=== PATIENT | male | born 1990 | race Two or more races ===

== ENCOUNTER 2016-10-13 22:00 | Emergency (ER) | payer OTHER ==
[~2016-10-13 22:00] MED LIST: BACITRACIN28.4 G2 TOP; NO HOME MEDICATION XX; NORCO 5-325 TA1 EACH PO
[2016-10-13 23:32] LABS: URINE APPEARANCE CLEAR; URINE BILIRUBIN NEGATIVE (NEG); URINE BLOOD NEGATIVE (NEG); URINE COLOR YELLOW; URINE GLUCOSE (UA) NEGATIVE (NEG); URINE KETONE NEGATIVE (NEG); URINE LEUKOCYTE ESTERASE NEGATIVE (NEG); URINE NITRITE NEGATIVE (NEG); URINE PROTEIN NEGATIVE (NEG); URINE SPECIFIC GRAVITY 1.015 (1.003-1.030)
[2016-10-13 23:43] LABS: BASO % 0.3 % (0-2); EOS % 0.7 % (0-7); EOSINOPHIL ABSOLUTE COUNT 0.1 tho/cmm (0.0-0.7); HCT-HEMATOCRIT 44.2 % (36.0-53.5); HGB-HEMOGLOBIN 15.4 gm/dl (13.5-17.0); IMMATURE GRANULOCYTES ABSOLUTE 0.02 tho/cmm (0-0.03); IMMATURE GRANULOCYTES PERCENT 0.3 % (0-0.3); LYMPH % 38.3 % (20-45); LYMPH ABSOLUTE COUNT 2.6 tho/cmm (0.8-4.5); MCH (MEAN CORPUSCULAR HGB) 29.3 pg (28.0-32.0); MCHC MEAN CORPUSCULAR HGB CONC 34.8 % (32.0-36.0); MEAN PLATELET VOLUME 11.7 cmc (9.4-12.4); MONO % 7.7 % (0-12); MONOCYTE ABSOLUTE COUNT 0.5 tho/cmm (0.0-1.2); NEUTROPHIL ABSOLUTE COUNT 3.6 tho/cmm (1.6-8.0); NEUTROPHIL-AUTOMATED 3.6 tho/cmm (1.6-8.0); NEUTROPHILS % 52.7 % (40-80); PLATELET COUNT 222 tho/cmm (150-450); RED BLOOD COUNT 5.26 mil/cmm (4.40-5.70); WHITE BLOOD COUNT 6.9 tho/cmm (4.0-10.0)
[2016-10-13 23:59] LABS: ALB/GLOB RATIO 0.9 (0.8-2.0); ALBUMIN 3.6 g/dl (3.5-5.0); ALKALINE PHOSPHATASE 73 U/L (33-138); ALT/SGPT 100 U/L (12-78); BILIRUBIN,TOTAL 0.5 mg/dl (0.0-1.5); BLOOD UREA NITROGEN 12 mg/dl (6-24); CALCIUM 9.3 mg/dl (8.5-10.5); CARBON DIOXIDE-VENOUS 25 mmol/L (22-32); CHLORIDE 106 mmol/l (96-110); CREATININE 0.96 mg/dl (0.60-1.30); GLUCOSE 85 mg/dL (70-110); LIPASE 117 U/L (73-393); SODIUM 139 mmol/L (135-145); eGFR VALUE FOR BLACK >90 mL/Min
[2016-10-14] LABS: ANION GAP 12 mmol/L (0-20); AST/SGOT 29 U/L (10-40); POTASSIUM 4.1 mmol/L (3.7-5.1)
[2016-10-14] MEDS ORDERED: PEPCID20 M1 PO (00:08)
== END 2016-10-14 00:15 ==
LOC: EDMED 22:00
PROVIDERS: Emergency Medicine
DX: R10.13 Epigastric pain (principal); R19.7 Diarrhea, unspecified; F17.200 Nicotine dependence, unspecified, uncomplicated
CPT/HCPCS: J7030